=== PATIENT | male | born 1930 | race Caucasian/White ===

== ENCOUNTER → 2018-02-28 | Outpatient (CLI) | payer MEDICARE ==
[2018-02-28 10:58] LABS: Basophils # (auto) 0 uL; Basophils % (auto) 0.4 % (0.0-2.0); Eosinophils # (auto) 0 uL; Eosinophils % (auto) 0.4 % (0.0-7.0); Hematocrit 33.9 % (41.0-53.0); Hemoglobin 11.3 g/dL (13.5-17.5); Lymphocytes # (auto) 2.4 uL; Lymphocytes % (auto) 41.7 % (10.0-50.0); Mean Corpuscular Hemoglobin 27.4 pg (28.0-32.0); Mean Corpuscular Hgb Conc. 33.2 g/dL (32.0-36.0); Mean Corpuscular Volume 82.5 fL (80.0-100.0); Monocytes # (auto) 0.5 uL; Monocytes % (auto) 8.5 % (0.0-12.0); Neutrophils # (auto) 2.8 uL; Nucleated Red Blood Cells % 0.2 %; Platelet Count (auto) 155 10^3/uL (140-450); Red Blood Cells 4.11 10^6/uL (4.5-5.90); Red Cell Distribution Width 16.3 % (11.8-14.3); White Blood Cell 5.7 10^3/uL (4.4-10.8)
[2018-02-28 11:27] LABS: Albumin 3.8 g/dL (3.4-5.0); BUN/Creatinine Ratio 12.6; Bilirubin, Total 0.7 mg/dL (0.2-1.0); Calcium 8.7 mg/dL (8.5-10.1); Potassium 4.6 mmol/L (3.5-5.1)
[2018-02-28 14:34] LABS: Urine Bacteria NONE SEEN /hpf (None Seen); Urine Blood Negative /uL (Negative); Urine Mucus FEW (None Seen); Urine Specific Gravity 1.018 (1.001-1.035); Urine WBC 1 /hpf (0 - 3)
== END | disposition home or self-care (01) ==
LOC: LAB 10:37
PROVIDERS: ATTEND Nurse Practitioner
DX: I10 Essential (primary) hypertension (principal); E78.5 Hyperlipidemia, unspecified
CPT/HCPCS: 36415; 80053; 80061; 81001; 84443; 85025

== ENCOUNTER → 2018-03-24 | Outpatient (CLI) | payer MEDICARE, OTHER | END | disposition home or self-care (01) | LOC: XYW 08:53 | PROVIDERS: ATTEND Internal Medicine Cardiovascular Disease | DX: I08.0 Rheumatic disorders of both mitral and aortic valves (principal); I95.1 Orthostatic hypotension; I10 Essential (primary) hypertension; E78.5 Hyperlipidemia, unspecified | CPT/HCPCS: 93306 ==

== ENCOUNTER 2018-03-29 09:26 | Inpatient (IN) | payer MEDICARE, OTHER ==
[~2018-03-29] VITALS: Ht 170.2 cm; Wt 93.6 kg
[~2018-03-29 09:26] MED LIST: ALB2.5IS NEB; ALBUAER3 IN; ASPI81TA27 PO; ATOR40TA52 PO; CLOP75TA41 PO; ISOS20TA49 PO; LACTCAP35 OR; LATA0.0015 EACHEYE; METO25TA62 PO; MULTTAB61 PO; NITR0.4S29 SL; RANO500T2 PO
[2018-03-29] MEDS ORDERED: fentaNYL CITRATE 100 MCG/2 ML VL ONE (11:10)
[2018-03-29] MEDS ORDERED: ANGIOMAX 250 MG VIAL IV ONE (11:10)
[2018-03-29] MEDS ORDERED: LIDOCAINE 2%HCL (LOCAL ANESTH.) INJ 20ML MDV ONE ×2 (11:11→11:42)
[2018-03-29] MEDS ORDERED: MIDAZOLAM HCL 1MG/1ML-2 ML VIAL ONE (11:11)
[2018-03-29] MEDS ORDERED: IODIXANOL 320MG/ML 100ML BTL IV ONE (11:11)
[2018-03-29] MEDS ORDERED: SODIUM CHL 0.9% 50 ML ONE (11:11)
[2018-03-29] MEDS ORDERED: NITROGLYCERIN 0.4MG/DOSE SPRAY 4.9GM ONE (12:23)
[2018-03-29] MEDS ORDERED: CLOPIDOGREL 300 MG TAB ONE (12:36)
[2018-03-29] MEDS ORDERED: SODIUM BICARBONATE 50ML VIAL 100 ML in D5W 5% 1,000 ML IV SCH (12:45)
[2018-03-29] MEDS ORDERED: SODIUM CHLORIDE 0.9% 1,000 ML IV SCH (12:57)
[2018-03-29] MEDS ORDERED: PATIENTS OWN MEDICATION (Albuterol Sulfate (Ventolin Mdi) 90 MCG) IN PRN (13:00)
[2018-03-29] MEDS ORDERED: MORPHINE SULFATE 4 MG/ML SYR/VIAL IV PRN (13:00)
[2018-03-29] MEDS ORDERED: NITROGLYCERIN 0.4 MG SL TAB SL PRN (13:00)
[2018-03-29] MEDS ORDERED: ALBUTEROL SULFATE 2.5 MG NEB SCH (13:00)
[2018-03-29] MEDS ORDERED: ALBUTEROL SULF 2.5 MG/0.5ML(0.5%) NEB SOLN NEB PRN (13:15)
[2018-03-29] MEDS ORDERED: amLODIPine BESYLATE 5 MG TAB PO ONE (13:30)
[2018-03-29 15:00] VITALS: BP 155/77
[2018-03-29 15:15] VITALS: BP 155/77
[2018-03-29 19:57] VITALS: BP 153/87
[2018-03-29] MEDS ORDERED: ALPRAZolam 0.25 MG TAB PO PRN (21:15)
[2018-03-29] MEDS: RANOLAZINE ER 500 MG TAB PO SCH (21:40)
[2018-03-29] MEDS: ATORVASTATIN 20 MG TAB PO SCH (21:40)
[2018-03-29] MEDS: LATANOPROST 0.005 % OPTH(EYE) SOL 2.5ML EACHEYE SCH (21:41)
[2018-03-30] VITALS: BP 152/72
[2018-03-30 04:00] VITALS: BP 111/62
[2018-03-30 05:49] LABS: Basophils # (auto) 0 uL; Basophils % (auto) 0.4 % (0.0-2.0); Eosinophils # (auto) 0 uL; Eosinophils % (auto) 0.5 % (0.0-7.0); Hematocrit 29.5 % (41.0-53.0); Lymphocytes # (auto) 3.1 uL; Lymphocytes % (auto) 47.1 % (10.0-50.0); Mean Corpuscular Hemoglobin 28.5 pg (28.0-32.0); Mean Corpuscular Volume 83.9 fL (80.0-100.0); Monocytes # (auto) 1.1 uL; Monocytes % (auto) 16.1 % (0.0-12.0); Neutrophils # (auto) 2.4 uL; Neutrophils % (auto) 35.9 % (37.0-80.0); Nucleated Red Blood Cells % 0.1 %; Platelet Count (auto) 162 10^3/uL (140-450); Red Blood Cells 3.51 10^6/uL (4.5-5.90); Red Cell Distribution Width 16.8 % (11.8-14.3); White Blood Cell 6.6 10^3/uL (4.4-10.8)
[2018-03-30 05:55] LABS: BUN/Creatinine Ratio 12.3; Calcium 8.8 mg/dL (8.5-10.1); Potassium 4.6 mmol/L (3.5-5.1)
[2018-03-30 08:00] VITALS: BP 121/60
[2018-03-30] MEDS ORDERED: ISOSORBIDE MONONITRATE 20 MG TAB PO SCH (10:00)
[2018-03-30] MEDS ORDERED: PATIENTS OWN MEDICATION (Atorvastatin Calcium 1 TAB) PO SCH (10:00)
[2018-03-30] MEDS ORDERED: PATIENTS OWN MEDICATION (Metoprolol Succinate (Metoprolol Succinate Er) 25 MG) PO SCH (10:00)
[2018-03-30] MEDS ORDERED: LACTOBACILLUS OR SCH (10:00)
[2018-03-30] MEDS ORDERED: FLORASTOR (S. BOULARDII) 250 MG CAP PO SCH (10:00)
[2018-03-30] MEDS: ASPirin-EC 81 mg tab PO SCH (10:39)
[2018-03-30] MEDS: ISOSORBIDE MONONITRATE 60 MG TAB PO SCH (10:40)
[2018-03-30] MEDS: CLOPIDOGREL BISULFATE 75 MG TAB PO SCH (10:41)
[2018-03-30] MEDS: amLODIPine BESYLATE 5 MG TAB PO SCH (10:41)
[2018-03-30] MEDS: MULTIPLE VITAMIN TAB PO SCH (10:41)
[2018-03-30] MEDS: METOPROLOL SUCCINATE XL 50 MG TAB PO SCH (10:42)
[2018-03-30] MEDS: RANOLAZINE ER 500 MG TAB PO SCH ×2 (11:07→22:26)
[2018-03-30] MEDS: HYDROcodone-ACET 5/325MG TAB PO PRN ×2 (11:08→20:45)
[2018-03-30 11:50] VITALS: BP 108/61
[2018-03-30 15:50] VITALS: BP_SYST 108; BP_SYST 110; BP_DIAS 61; BP_DIAS 67
[2018-03-30 19:50] VITALS: BP 112/68
[2018-03-30] MEDS: LATANOPROST 0.005 % OPTH(EYE) SOL 2.5ML EACHEYE SCH (22:26)
[2018-03-30] MEDS: ATORVASTATIN 20 MG TAB PO SCH (22:26)
[2018-03-31 05:00] VITALS: BP 117/64
[2018-03-31 07:06] LABS: Hemoglobin 9.2 g/dL (13.5-17.5); Mean Corpuscular Hemoglobin 28.6 pg (28.0-32.0); Mean Corpuscular Hgb Conc. 34.1 g/dL (32.0-36.0); Mean Corpuscular Volume 83.8 fL (80.0-100.0); Platelet Count (auto) 146 10^3/uL (140-450); Red Blood Cells 3.23 10^6/uL (4.5-5.90); Red Cell Distribution Width 17.6 % (11.8-14.3); White Blood Cell 6.1 10^3/uL (4.4-10.8)
[2018-03-31 07:08] LABS: Calcium 8.6 mg/dL (8.5-10.1); Potassium 3.9 mmol/L (3.5-5.1)
[2018-03-31 07:09] LABS: Band Neutrophils % (manual) 0; Basophils % (manual) 0 (0.0-2.0); Blast Cells 0; Metamyelocytes % 0; Myelocytes % 0; Promyelocytes % 0; Reactive Lymphocytes 0
[2018-03-31 07:10] LABS: BUN/Creatinine Ratio 15.8
[2018-03-31 08:04] LABS: Eosinophils % (manual) 1 (0-7); Lymphocytes % (manual) 49 (10.0-50.0); Monocytes % (manual) 9 (0-12)
[2018-03-31 09:00] VITALS: BP 120/66
[2018-03-31] MEDS: ISOSORBIDE MONONITRATE 60 MG TAB PO SCH (10:00)
[2018-03-31] MEDS: ASPirin-EC 81 mg tab PO SCH (10:00)
[2018-03-31] MEDS: CLOPIDOGREL BISULFATE 75 MG TAB PO SCH (10:00)
[2018-03-31] MEDS: RANOLAZINE ER 500 MG TAB PO SCH (10:00)
[2018-03-31] MEDS: amLODIPine BESYLATE 5 MG TAB PO SCH (10:00)
[2018-03-31] MEDS: METOPROLOL SUCCINATE XL 50 MG TAB PO SCH (10:00)
[2018-03-31] MEDS: MULTIPLE VITAMIN TAB PO SCH (10:00)
== END 2018-03-31 13:34 | disposition home or self-care (01) | DRG 247 ==
LOC: CATH 09:26 → DOU IN ICU 09:27 → TELE-CENTR 03-30 23:18
PROVIDERS: ADMIT Internal Medicine Cardiovascular Disease; ATTEND Internal Medicine
PROC: 027034Z Dilation of Coronary Artery, One Artery with Drug-eluting Intraluminal Device, Percutaneous Approach (ICD-10-PCS; principal; 2018-03-29)
PROC: 4A023N7 Measurement of Cardiac Sampling and Pressure, Left Heart, Percutaneous Approach (ICD-10-PCS; 2018-03-29)
PROC: B2111ZZ Fluoroscopy of Multiple Coronary Arteries using Low Osmolar Contrast (ICD-10-PCS; 2018-03-29)
PROC: B2131ZZ Fluoroscopy of Multiple Coronary Artery Bypass Grafts using Low Osmolar Contrast (ICD-10-PCS; 2018-03-29)
PROC: B2181ZZ Fluoroscopy of Left Internal Mammary Bypass Graft using Low Osmolar Contrast (ICD-10-PCS; 2018-03-29)
DX: I25.10 Atherosclerotic heart disease of native coronary artery without angina pectoris (principal); I25.82 Chronic total occlusion of coronary artery; I35.0 Nonrheumatic aortic (valve) stenosis; N18.3 Chronic kidney disease, stage 3 (moderate); E78.5 Hyperlipidemia, unspecified; J44.9 Chronic obstructive pulmonary disease, unspecified; Z95.1 Presence of aortocoronary bypass graft; Z79.899 Other long term (current) drug therapy; Z88.0 Allergy status to penicillin; Z88.8 Allergy status to other drugs, medicaments and biological substances; Z87.891 Personal history of nicotine dependence
CPT/HCPCS: 36415; 80048; 80053; 85007; 85025; 85027; 85610; 85730; 87081; 92928; 93459; 99152; 99153; C1874; J2250; Q9967

== ENCOUNTER → 2018-04-12 | Outpatient (CLI) | payer MEDICARE, OTHER ==
[~2018-04-12] MED LIST changes: +ALBUTEROL SULF 2.5 MG/0.5ML(0.5%) NEB SOLN ONE
== END | disposition home or self-care (01) ==
LOC: RT 08:26
PROVIDERS: ATTEND Internal Medicine Pulmonary Disease
DX: J44.9 Chronic obstructive pulmonary disease, unspecified (principal); I13.0 Hypertensive heart and chronic kidney disease with heart failure and stage 1 through stage 4 chronic kidney disease, or unspecified chronic kidney disease; N18.3 Chronic kidney disease, stage 3 (moderate); I50.9 Heart failure, unspecified; E78.5 Hyperlipidemia, unspecified; Z87.891 Personal history of nicotine dependence; Z79.899 Other long term (current) drug therapy
CPT/HCPCS: 94060; 94640

== ENCOUNTER → 2020-10-02 | Outpatient (CLI) | payer MEDICARE, OTHER ==
[~2020-10-02] MED LIST changes: -ALBUTEROL SULF 2.5 MG/0.5ML(0.5%) NEB SOLN ONE; +ASPI-543 PO; -ASPI81TA27 PO; -LATA0.0015 EACHEYE; +LATA0.0019 EACHEYE; -METO25TA62 PO; +METO25TA93 PO; +MULT-1018 PO; -MULTTAB61 PO
[2020-10-02 14:45] LABS: Basophils # (auto) 0 10 ^3/uL (0-0.2); Basophils % (auto) 0.4 % (0.0-2.0); Eosinophils # (auto) 0 10 ^3/uL (0-0.8); Eosinophils % (auto) 0.4 % (0.0-7.0); Hematocrit 31.9 % (41.0-53.0); Hemoglobin 10.7 g/dL (13.5-17.5); Lymphocytes # (auto) 3.4 10 ^3/uL (0.4-5.4); Lymphocytes % (auto) 46.7 % (10.0-50.0); Mean Corpuscular Hemoglobin 27.2 pg (28.0-32.0); Mean Corpuscular Hgb Conc. 33.4 g/dL (32.0-36.0); Mean Corpuscular Volume 81.5 fL (80.0-100.0); Monocytes # (auto) 1.1 10 ^3/uL (0-1.3); Neutrophils # (auto) 2.6 10 ^3/uL (1.6-8.6); Neutrophils % (auto) 36.5 % (37.0-80.0); Nucleated Red Blood Cells % 0.1 %; Platelet Count (auto) 169 10^3/uL (140-450); Red Blood Cells 3.92 10^6/uL (4.5-5.90); Red Cell Distribution Width 17.2 % (11.8-14.3); White Blood Cell 7.2 10^3/uL (4.4-10.8)
[2020-10-02 15:17] LABS: Albumin 3.4 g/dL (3.4-5.0); Calcium 9.2 mg/dL (8.5-10.1); Potassium 4.8 mmol/L (3.5-5.1)
[2020-10-02 15:22] LABS: BUN/Creatinine Ratio 10.9; Bilirubin, Total 0.8 mg/dL (0.2-1.0); Total Protein 6.5 g/dL (6.4-8.2)
== END | disposition home or self-care (01) ==
LOC: LAB 14:19
PROVIDERS: ATTEND Student in an Organized Health Care Education/Training Program
DX: I10 Essential (primary) hypertension (principal)
CPT/HCPCS: 36415; 80053; 84443; 85025